=== PATIENT | male | born 1985 | race Caucasian/White ===

== ENCOUNTER 2017-01-11 13:06 | Emergency (ER) | payer OTHER ==
[~2017-01-11] VITALS: Ht 175.3 cm; Wt 101.0 kg
[2017-01-11 14:04] LABS: HEMATOCRIT 48.9 % (38.0-50.0); MCH 32.4 PG (29.0-34.0); MCHC 36.4 G/DL (30.0-36.0); MCV 89.1 FL (86-99); MEAN PLAT.VOLUME 9.2 uM^3 (9.0-12.4); PLATELET COUNT 218 K/uL (156-360); RBC DIS.WIDTH-CV 11.9 % (11.8-14.6); RBC DIS.WIDTH-SD 38.2 % (39-53); RED BLOOD COUNT 5.49 M/uL (4.00-5.50); WHITE BLOOD COUNT 7.9 K/uL (4.1-10.2)
[2017-01-11 14:14] LABS: CHLORIDE 103 mEq/L (99-109); POTASSIUM 3.9 mEq/L (3.7-5.4); SODIUM 139 mEq/L (136-147)
[2017-01-11 14:17] LABS: GLUCOSE 97 mg/dL (70-99)
[2017-01-11 14:18] LABS: ANION GAP 14 MEQ/L (2-14)
[2017-01-11 14:19] LABS: TOTAL BILIRUBIN 1.8 mg/dL (0.0-1.0)
[2017-01-11 14:20] LABS: ALKALINE PHOSPHATASE 128 IU/L (3-129)
[2017-01-11 14:21] LABS: UREA NITROGEN (BUN) 10 mg/dL (9-23)
[2017-01-11 14:22] LABS: GFR ESTIMATE (CALCULATED) > 59 mL/min/
[2017-01-11 14:41] LABS: ADD MIUA? YES; BILIRUBIN SMALL; BLOOD NEGATIVE; COLOR AMBER ((YELLOW)); GLUCOSE (STRIP) NEGATIVE; KETONES 5; LEUKOCYTES NEGATIVE; NITRITE NEGATIVE; PROTEIN (STRIP) 100; SPECIFIC GRAVITY 1.027 (1.000-1.030)
[2017-01-11 15:10] LABS: BACTERIA NONE SEEN /HPF; EPITHELIAL CELLS NONE SEEN /HPF; MUCUS 4+ /LPF; RED BLOOD CELLS 0-5 /HPF (0-5); UCUL ADDED? NO; WHITE BLOOD CELLS NONE SEEN /HPF (0-5)
[2017-01-11 15:21] LABS: DIRECT BILIRUBIN 0.7 mg/dL (0.0-0.3); LIPASE 14 U/L (1.0-51.0)
[2017-01-11] MEDS ORDERED: ZANTAC150 MG PO (16:47)
[2017-01-11 17:05] VITALS: BP 144/86
== END 2017-01-11 17:05 | disposition home or self-care (01) ==
LOC: EME 13:06
DX: R10.11 Right upper quadrant pain (principal); K21.9 Gastro-esophageal reflux disease without esophagitis
CPT/HCPCS: 76705; 80053; 81003; 82248; 83690; 85027; 99281; 99283